=== PATIENT | female | born 1975 | race Caucasian/White ===

== ENCOUNTER → 2019-03-01 15:47 | Outpatient (CLI) | payer BC, SELFPAY ==
--- NOTE | 2019-03-01 16:00 | BD_ITS ---
STUDY: DUAL ENERGY X-RAY ABSORPTIOMETRY / DXA REASON FOR EXAM: Female, 44 years old. Early menopause. Loss of height. TECHNIQUE: Bone Mineral Density (BMD) measurements of lumbar spine and bilateral hips were obtained. COMPARISON: None. FINDINGS: Lumbar Spine (L1-L4): g/cm2 (1.176) / T-score (0.0) / Z-score (0.0) Findings are suggestive of normal bone density with a low fracture risk. Left Femur Total: g/cm2 (1.034) / T-score (0.2) / Z-score (0.5) Left Femoral Neck: g/cm2 (0.972) / T-score (-0.5) / Z-score (0.1) Right Femur Total: g/cm2 (1.052) / T-score (0.4) / Z-score (0.6) Right Femoral Neck: g/cm2 (0.965) / T-score (0.5) / Z-score (0.0) BD/Dexa Bone Density Study IMPRESSION: The patient is considered normal as outlined below according to World Marco Organization (WHO) criteria with a low fracture risk. Reference Information: The T-score is the number of standard deviations above or below the standard which is normal for young adults at their peak bone mineral density. The World Health Organization (WHO) interprets the T-scores as follows: Above -1 Normal bone density Between -1 and -2.5 Osteopenia Equal to / or below -2.5 Osteoporosis As a practical clinical guideline, osteopenia may be graded as follows: Mild -1 through -1.5 Moderate -1.6 through -2.0 Severe -2.1 through -2.4 The Z-score is the number of standard deviations above or below age-matched controls. A Z-score of less than -1.5 would be considered abnormal. References: 1. NIH Osteoporosis and Related Bone Diseases http://www.osteo.org 2. International Society for Clinical Densitometry http://www.iscd.org 3. National Osteoporosis Foundation http://www.nof.org Electronically Signed: Sam Curtis, at 13:37 EDT , Service support ,
== END ==
PROVIDERS: Visit Provider Internal Medicine Hematology & Oncology
DX: Z78.0 Asymptomatic menopausal state (principal)
CPT/HCPCS: 77080

== ENCOUNTER → 2020-10-04 | Outpatient (CLI) | payer BC, SELFPAY ==
[2020-10-04 14:27] VITALS: BMI 38.0
[2020-10-10 13:54] LABS: HPV APTIMA, High Risk Negative (Negative)
== END | disposition home or self-care (01) ==
LOC: LABSPEC 16:24
PROVIDERS: PCP Family Medicine; Visit Provider Nurse Practitioner Women's Health
DX: Z12.4 Encounter for screening for malignant neoplasm of cervix (principal)
CPT/HCPCS: 87624; 88175; G0145

== ENCOUNTER 2022-10-02 07:54 | Outpatient (RCR) | payer OTHER, SELFPAY ==
--- NOTE | 2022-10-03 11:46 | HP.OTEVAL ---
Patient's Visit Information ANDRE PAGAN is a 47 year old F, referred to Occupational Therapy by ADAMA ALEXANDER, with a diagnosis of lymphedema. Date of Evaluation: 10/02/22 Occupational Therapist: Radha Singh, FRANK/Eryn, CHT - Subjective This 47 year old female was seen for OT eval with dx of lymphedema. pt states she was dx in 2013 with breast cancer- had 2 lymph nodes and 36 radiation session. lymphedema pt has done wrapping- has compression sleeve - did do her self manual lymphedema massage-. went on flight to [place] and did not use her compression sleeve-. pt states swelling in left arm and chest wall - a feeling of heaviness/ fullness that is bothersome and uncomfortable when she is wearing her bra. Pt states she would like to know what more she can do to mtg. her lymphedema. - Lymphedema (Circumferential Measure) MCP: right 18.5 left 18 Wrist: right 16.8 left 17cm Lower forearm: right 20 left 19.5 Largest forearm: right 26 left 26.5 Elbow: right 26 left 25cm Largest humerus: right 32.5 left 33.5cm Axcillary: right 37 left 36cm - Goals Demonstrate adequate knowledge of self-massage by 2nd week: Yes Demonstrate adequate knowledge skin care/prec by 2nd week: Yes Demonstrate adequate knowledge therapeutic exercises by d/c: Yes Select approp compression garment w/donning/care/wear by d/c: Yes Voice need to replace compression garment every 4-6mo by dc: Yes Goal:: use of flexitouch for home mtg. - Rehabilitation General Assessment: pt demo with stage 1 lymphedema- symptoms of tightness/ fullness and heaviness of left UE - edema around chest wall when wearing her bra- pt has been performing conservative treatment but has not been successful with results- pt would benefit from home flexitouch compression unit with trunk due to chest wall and abdominal edema. therapist will contact [employer] and get process for pt to have home flexitouch with truck unit to assist pt in life long mtg. of her lymphedema. pt demo understanding and agree to POC. Rehabilitation Potential: Good - Anticipated Interventions Manual Lymph Drainage, Education re Life-long lymphedema Management, Education re Self Massage Techniques, Home Program, Other Other Interventions: home flexitouch unit for self mtg of lymphedema - Visit Plan General Plan: therapist ed. pt on initiation of lymph stimulation exercise- beneficial pool exercises along with use of compression when traveling-. pt will continue using night compression and will get new compression sleeve. Pt receptive to flexitouch home compression device and agree to have therapist send demographic to see if she can get one to assist in her mtg. of lymphedema. TEXT: Thank you for the opportunity to evaluate your patient. For Medicare and Medicare HMO plans, please review the plan of care and approve it. It will need to be FAXED BACK to us at [phone] for Medicare purposes. Please let me know if there are questions or concerns regarding this plan of care. Physician Signature: Date:
--- NOTE | 2022-12-18 14:01 | HP.OT.NRP ---
ANDRE PAGAN was seen in my office for initial evaluation on 10/02/22. The following Plan of Care was established for this patient: Anticipated Interventions: Manual Lymph Drainage, Education re Life-long lymphedema Management, Education re Self Massage Techniques, Home Program, Other Other Interventions: home flexitouch unit for self mtg of lymphedema This patient was last seen in our office 10/02/22. Pertinent comments regarding their Occupational therapy will appear below: pt was seen for OT eval. At this time no further apts. have been scheduled and due to time lapse of greater than 30 days of services pt is d/c. At this point I will be discontinuing this patient from occupational therapy. I would be happy to see this patient again in the future if found appropriate by the physician. Thank you! Radha Singh, OTR/L, CHT
== END 2022-10-02 19:00 | disposition home or self-care (01) ==
LOC: OT 07:54
PROVIDERS: PCP Family Medicine
DX: Z85.3 Personal history of malignant neoplasm of breast (principal)
CPT/HCPCS: 97166; 97530

== ENCOUNTER 2023-12-22 08:13 | Day surgery (SDC) | payer OTHER, SELFPAY ==
--- OUTSIDE RECORDS SUMMARY | 2023-12-22 08:33 | XMS RPT_ITS | CCD ---
Author Name Unknown Address [id number] [place] [address] Organization [facility] Care Team Providers Care Integration Engineer Name Role Phone Lawanda Schroeder Unavailable Unavailable Lawanda Schroeder Unavailable Unavailable ALEXANDRE, LAWANDA TODD Admitting Unavailab le STENGIDEON, LAWANDA TODD Primary Care Unavailab le Lawanda Schroeder Unavailable Unavailable Unavailable Lawanda Schroeder MD Primary Care Provider Cleve LOWERY, Kellie G Unavailable Gabriele CLIFTON, Jacqueline Unavailable Unavailable Shaffer OFFICE RENTAL CLERK-ORTHOTIC PRACTITIONER, Nedra L Unavailable [phone] Funmi ROSSI, PhD, Chadwick Hawkins Unavailable [phone] Phil CLIFTON, Roxie Unavailable Unavailable Dann RN, Paramjit Unavailable Unavailable Charlie RN, Amrita Unavailable Unavailable Stencel, Dr. Lawanda Todd Referring Unava ilable Stengideon, Dr. Lawanda Todd Attending Mauro ilable Stencel, Dr. Lawanda Todd Primary Care Unava ilable Stencel, Dr. Lawanda Todd Primary Care Unava ilable Stencel, Dr. Lawanda Todd Referring Unava ilable Stencel, Dr. Lawanda Todd Attending Unava ilable StenLawanda padilla MD Primary Care Provider Lawanda Schroeder MD Unavailable Lawanda Schroeder MD Primary Care Provider Cleve LOWERY, Kellie G Unavailable Gabriele CLIFTON, Jacqueline Unavailable Unavailable Shaffer APRN-ORTHOTIC PRACTITIONER, Nedra L Unavailable [phone] Funmi ROSSI, PhD, Chadwick Hawkins Unavailable Phil RN, Roxie Unavailable Unavailable Dann RN, Paramjit Unavailable Unavailable Charlie RN, Amrita Unavailable Unavailable ELVI DE LEÓN Referring Unavailable STENCEL, LAWANDA Primary Care Unavailable JOSE REIS Attending Unavailable STENCEL, LAWANDA Primary Care Unavailable ELVI DE LEÓN Referring Unavailable STENCEL, LAWANDA Primary Care Unavailable STENCEL, LAWANDA Attending Unavailable MAMMOGRAPHY-ZENAIDA, SELF-REQUESTED Referring Unavailable STENCEL, LAWANDA Primary Care Unavailable STENCEL, LAWANDA D Primary Care Unavailable STENCEL, LAWANDA D Attending Unavailable STENCEL, LAWANDA D Referring Unavailable STENCEL, LAWANDA D Primary Care Unavailable STENCEL, LAWANDA D Attending Unavailable STENCEL, LAWANDA D Primary Care Unavailable Allergies Allergy Classification Reported Allergen(s) Allergy Type Date of Onset Reaction(s) Facility letrozole (2 sources) letrozole; Translations: [letrozole] Drug Allergy Rash [facility] Work Phone: Opioid Agonists (2 sources) Meperidine; Translations: [Demerol TABS] Drug Allergy Vomiting [facility] Work Phone: Tamoxifen (2 sources) Tamoxifen; Translations: [tamoxifen] Drug Allergy [facility] Work Phone: (16 sources) letrozole; Translations: [letrozole] Drug Allergy 7 Rash [facility] (7 sources) Meperidine; Translations: [Demerol TABS] Drug Allergy 3 Vomiting, Other [facility] Work Phone: (9 sources) Tamoxifen; Translations: [tamoxifen] Drug Allergy 3 Unknown [facility] Work Phone: (7 sources) Meperidine Drug Allergy 4 Nausea and Vomiting [facility] (7 sources) Naproxen Drug Allergy 6 Nausea and Vomiting [facility] Work Phone: (2 sources) Meperidine; Translations: [MEPERIDINE] Drug Allergy 3 [facility] Medications Current Medications Medication Drug Class(es) Dates Sig (Normalized) Sig (Original) aspirin 81 mg delayed release oral tablet (16 sources) Platelet Aggregation Inhibitor, Nonsteroidal Anti-inflammatory Drug Start: 01-26-2020 take 1 tablet by mouth once daily aspirin 81 mg EC tablet Take 1 tablet (81 mg) by mouth once daily. 0 01/26/2020 Active Completed/Discontinued Medications Medication Drug Class(es) Dates Sig (Normalized) Sig (Original) anastrozole 1 mg oral tablet (1 source) Aromatase Inhibitor Start: 01-26-2020 take 1 tablet by mouth once daily Anastrozole 1 MG Oral Tablet TAKE 1 TABLET DAILY. Refills: 0 DO Start : 26-Jan-2020 Active fluticasone propionate 0.05 mg/actuat metered dose nasal spray (4 sources) Corticosteroid Start: 07-26-2020 take 2 spray(s) nasal route once daily Fluticasone Propionate 50 MCG/ACT Nasal Suspension USE 2 SPRAYS IN EACH NOSTRIL ONCE DAILY Quantity: 1 Refills: 11 Ordered: 26-Jul-2020 Lawanda Schroeder MD Start : 26-Jul-2020 Active hydrocortisone valerate 2 mg/ml topical cream (1 source) Corticosteroid Start: 01-26-2020 Hydrocortisone Valerate 0.2 % External Cream APPLY SPARINGLY ONCE OR TWICE DAILY NEEDED. Quantity: 1 Refills: 11 Laawnda Schroeder Start : 26-Jan-2020 Active 15 GM Tube Problems Active Problems Problem Classification Problem Date Documented Da te Episodic/Chronic Allergic reactions (13 sources) Eczema; Translations: [Contact dermatitis and other eczema, unspecified cause] Onset: 05-04-2023 05-05-2023 Episodic Cancer of breast (20 sources) Malignant tumor of breast ; Translations: [Malignant neoplasm of breast (female), unspecified] Onset: 09-13-2014 Resolved: 05-12-2016 01-26-2018 Chronic Cancer of breast (7 sources) History of malignant neoplasm of breast; Translations: [Personal history of malignant neoplasm of breast] Onset: 11-03-2023 Episodic Disorders of lipid metabolism (15 sources) Hyperlipidemia; Translations: [Other and unspecified hyperlipidemia] Onset: 05-04-2023 05-05-2023 Chronic Essential hypertension (13 sources) Hypertensive disorder; Translations: [Unspecified essential hypertension] Onset: 05-04-2023 05-05-2023 Chronic Immunizations and screening for infectious disease (9 sources) Patient encounter status; Translations: [Other specified vaccination] 04-15-2023 Episodic Nonmalignant breast conditions (3 sources) Lump in left breast; Translations: [Unspecified lump in the left breast, unspecified quadrant] Episodic Other diseases of veins and lymphatics (7 sources) Lymphedema of upper limb; Translations: [Lymphedema, not elsewhere classified] Onset: 01-17-2016 01-17-2016 Chronic Other diseases of veins and lymphatics (2 sources) Lymphedema, not elsewhere classified; Translations: [Lymphedema, not elsewhere classified] Onset: 01-17-2016 Chronic Other liver diseases (7 sources) Steatosis of liver; Translations: [Fatty (change of) liver, not elsewhere classified] Onset: 10-14-2015 10-14-2015 Chronic Other nutritional; endocrine; and metabolic disorders (10 sources) Obesity; Translations: [Obesity, unspecified] Onset: 05-04-2023 05-04-2023 Chronic Other nutritional; endocrine; and metabolic disorders (7 sources) Obese class I; Translations: [Obesity, unspecified] Onset: 04-20-2017 04-20-2017 Chronic Residual codes; unclassified (14 sources) Past history of procedure; Translations: [Other specified personal history presenting hazards to health] Episodic Past or Other Problems Problem Classification Problem Date Documented Da te Episodic/Chronic Calculus of urinary tract (9 sources) Uric acid renal calculus; Translations: [Uric acid nephrolithiasis] Onset: 05-04-2023 05-04-2023 Episodic Hepatitis (16 sources) Nonalcoholic steatohepatitis; Translations: [Other chronic nonalcoholic liver disease] Onset: 05-24-2019 Resolved: 12-29-2019 12-29-2019 Chronic Mood disorders (7 sources) Mood disorders Onset: 08-01-2022 Resolved: 08-01-2022 08-01-2022 Other aftercare (7 sources) Prevention status; Translations: [residential (current) use of selective estrogen receptor modulators (SERMs)] Onset: 01-20-2015 Resolved: 01-29-2021 01-29-2021 Episodic Other liver diseases (7 sources) Enzyme level - finding; Translations: [Elevated transaminase level] Onset: 10-02-2015 10-02-2015 Episodic Other screening for suspected conditions (not mental disorders or infectious disease) (2 sources) Encounter for screening mammogram for malignant neoplasm of breast; Translations: [Encounter for screening mammogram for malignant neoplasm of breast] Onset: 08-07-2023 Episodic Viral infection (3 sources) Disease caused by 2019-nCoV; Translations: [Other specified viral infection] Onset: 05-04-2023 Resolved: 05-04-2023 05-04-2023 Episodic NEGATED: Highlighted row has not occurred!Residual codes; unclassified (4 sources) Disease Episodic Results Test Name Value Interpretation Reference Range Facil ity Vital Signs Date Time Vital Sign Value Performing Clinician Facility 11-12-2023 08:04-0500 Body height 157.5 cm Lawanda Schroeder MD Work Phone: [facility] 11-12-2023 08:04-0500 Body mass index (BMI) [Ratio] 33.75 kg/m2 Lawanda Schroeder MD Work Phone: [facility] 11-12-2023 08:04-0500 Body weight 83.69 kg Lawanda Schroeder MD Work Phone: [facility] 11-12-2023 08:04-0500 Diastolic blood pressure 80 mm[Hg] Lawanda Schroeder MD Work Phone: [facility] 11-12-2023 08:04-0500 Heart rate 80 /min Lawanda Schroeder MD Work Phone: [facility] 11-12-2023 08:04-0500 SaO2% (BldA) [Mass fraction] 99 % Lawanda Schroeder MD Work Phone: [facility] 11-12-2023 08:04-0500 Systolic blood pressure 122 mm[Hg] Lawanda Schroeder MD Work Phone: [facility] 05-05-2023 08:06-0400 Body height 157.5 cm Lawanda Schroeder MD Work Phone: [facility] 05-05-2023 08:06-0400 Body mass index (BMI) [Ratio] 39.36 kg/m2 Lawanda Schroeder MD Work Phone: [facility] 05-05-2023 08:06-0400 Body weight 97.61 kg Lawanda Schroeder MD Work Phone: [facility] 05-05-2023 08:06-0400 Diastolic blood pressure 78 mm[Hg] Lawanda Schroeder MD Work Phone: [facility] 05-05-2023 08:06-0400 Heart rate 92 /min Lawanda Schroeder MD Work Phone: [facility] 05-05-2023 08:06-0400 SaO2% (BldA) [Mass fraction] 98 % Lawanda Schroeder MD Work Phone: [facility] 05-05-2023 08:06-0400 Systolic blood pressure 126 mm[Hg] Lawanda Schroeder MD Work Phone: [facility] 10-31-2022 08:19-0500 Body height 157.48 cm Lawanda Schroeder Work Phone: [facility] Work Phone: 10-31-2022 08:19-0500 Body mass index (BMI) [Ratio] 37.4 kg/m2 Lawanda Schroeder Work Phone: [facility] Work Phone: 10-31-2022 08:19-0500 Body surface area Derived from formula 1.93 m2 aLwanda Schroeder Work Phone: [facility] Work Phone: 10-31-2022 08:19-0500 Body weight 92.76 kg Lawanda Schroeder Work Phone: [facility] Work Phone: 10-31-2022 08:19-0500 Diastolic blood pressure 84 mm[Hg] Lawanda Schroeder Work Phone: [facility] Work Phone: 10-31-2022 08:19-0500 Heart rate 97 /min Lawanda Schroeder Work Phone: [facility] Work Phone: 10-31-2022 08:19-0500 SaO2% (BldA) [Mass fraction] 84 % Lawanda Schroeder Work Phone: [facility] Work Phone: 10-31-2022 08:19-0500 Systolic blood pressure 126 mm[Hg] Lawanda Schroeder Work Phone: [facility] Work Phone: 08-01-2022 08:12-0400 Body height 154.9 cm Elvi Talley OFFICE RENTAL CLERK-ORTHOTIC PRACTITIONER Work Phone: [facility] 08-01-2022 08:12-0400 Body mass index (BMI) [Ratio] 36.56 kg/m2 Elvi Talley OFFICE RENTAL CLERK-ORTHOTIC PRACTITIONER Work Phone: [facility] 08-01-2022 08:12-0400 Body temperature 98.2 [degF] Elvi Talley OFFICE RENTAL CLERK-ORTHOTIC PRACTITIONER Work Phone: [facility] 08-01-2022 08:12-0400 Body weight 87.77 kg Elvi Talley OFFICE RENTAL CLERK-ORTHOTIC PRACTITIONER Work Phone: [facility] 08-01-2022 08:12-0400 Diastolic blood pressure 77 mm[Hg] Elvi Talley OFFICE RENTAL CLERK-ORTHOTIC PRACTITIONER Work Phone: [facility] 08-01-2022 08:12-0400 Heart rate 61 /min Elvi Talley OFFICE RENTAL CLERK-ORTHOTIC PRACTITIONER Work Phone: [facility] 08-01-2022 08:12-0400 Systolic blood pressure 129 mm[Hg] Elvi Talley OFFICE RENTAL CLERK-ORTHOTIC PRACTITIONER Work Phone: [facility] 05-08-2021 08:12-0400 Body height 157.48 cm Lawanda Schroeder Work Phone: [facility] Work Phone: 05-08-2021 08:12-0400 Body mass index (BMI) [Ratio] 36.03 kg/m2 Lawanda Schroeder Work Phone: [facility] Work Phone: 05-08-2021 08:12-0400 Body surface area Derived from formula 1.9 m2 Lawanda Schroeder Work Phone: [facility] Work Phone: 05-08-2021 08:12-0400 Body temperature 96.9 [degF] Lawanda Schroeder Work Phone: [facility] Work Phone: 05-08-2021 08:12-0400 Body weight 89.36 kg Lawanda Schroeder Work Phone: [facility] Work Phone: 05-08-2021 08:12-0400 Diastolic blood pressure 70 mm[Hg] Lawanda Schroeder Work Phone: [facility] Work Phone: 05-08-2021 08:12-0400 Heart rate 78 /min Lawanda Schroeder Work Phone: [facility] Work Phone: 05-08-2021 08:12-0400 SaO2% (BldA) [Mass fraction] 98 % Lawanda Schroeder Work Phone: [facility] Work Phone: 05-08-2021 08:12-0400 Systolic blood pressure 110 mm[Hg] Lawanda Schroeder Work Phone: [facility] Work Phone: 07-26-2020 10:17-0400 BMI (Body Mass Index) 35.68 kg/m2 Lawanda Schroeder [facility] Work Phone: 07-26-2020 10:17-0400 Body Temperature 97.7 [degF] Lawanda Alexandre [facility] Work Phone: 07-26-2020 [id number] Body weight 88.5 kg Lawanda Albagideon [facility] Work Phone: 07-26-2020 10:17-0400 BP Diastolic 78 mm[Hg] Lawanda Alexandre [facility] Work Phone: Encounters Encounter Date Encounter Type Care Provider Facility Start: 11-16-2023 End: 11-16-2023 Clinical Support Encounter [facility] Procedures Date Procedure Procedure Detail Performing Clinician Start: 11-12-2023 FOLLOW UP IN FAMILY MEDICINE LAWANDA SCHROEDER Start: 11-05-2023 CBC panel - Blood by Automated count LAWANDA SCHROEDER Start: 11-05-2023 Comprehensive metabo lic 2000 panel - Serum or Plasma LAWANDA SCHROEDER Start: 11-05-2023 Lipid panel LAWANDA JARVIS Start: 11-05-2023 Lipid 1996 panel - S vickey or Plasma Lawanda Schroeder MD Work Phone: Start: 10-21-2022 Lipid 1996 panel - S vickey or Plasma Lawanda Schroeder MD Work Phone: Start: 08-01-2022 Us breast uni real t [place] with image limited Elvi Talley APRN-ORTHOTIC PRACTITIONER Work Phone: Start: 08-01-2022 Diagnostic mammograp hy computer-aided detcj bi Elvi Talley APRN-ORTHOTIC PRACTITIONER Work Phone: Appendectomy Lawanda Schroeder Plan of Treatment Date Care Activity Detail Author Start: 11-05-2028 Lipid panel Lipid Panel [facility] Start: 10-21-2027 Lipid panel Lipid Panel [facility] Start: 08-07-2024 Screening for malignant neoplasm of breast MAMMOGRAM SCREENING DISCUSSION [facility] Start: 02-24-2024 Zoster Vaccines (1 of 2) Zoster Vaccines (1 of 2) [facility] Start: 08-01-2023 Screening for malignant neoplasm of breast MAMMOGRAM SCREENING DISCUSSION [facility] Start: 08-01-2023 Screening mammography MAMMOGRAM SCREENING DISCUSSION [facility] Start: 07-31-2023 COVID-19 VACCINE ( season) COVID-19 VACCINE ( season) [facility] Start: 07-31-2023 Influenza vaccination INFLUENZA VACCINE (#1) [facility] Start: 05-05-2023 End: 05-05-2024 CBC panel - Blood by Automated count CBC Lab Routine Mixed hyperlipidemia Expected: 05/05/2023 (Approximate), Expires: 05/05/2024 [facility] Service Area Work Phone: Immunizations Immunization Date Immunization Notes Care Provider Fa cili 09-01-2022 influenza, injectabl e, quadrivalent, contains preservative Lawanda Schroeder MD Work Phone: [facility] Work Phone: 09-01-2022 influenza, injectabl e, quadrivalent, preservative free Lawanda Schroeder Work Phone: [facility] Work Phone: Payers Date Payer Category Payer Unknown [id number] 2020 Unknown 1975 Unknown [id number] 1974 Unknown [id number] 1974 Unknown [id number] 2. [id number] 1974 Unknown [id number] 1974 Unknown [id number] 2. [id number] 1974 Unknown [id number] 2. [id number] 1974 Unknown [id number] 2. [id number] 1974 Unknown [id number] [id number] 1974 Unknown [id number] [id number] 1974 Unknown [id number] Social History Date Type Detail Facility Assertion [facility] Work [facility]: Start: 08-01-2022 End: 08-07-2023 Current non-drinker of alcohol Current non-drinker of alcohol [facility] Work Phone: Start: 09-13-2014 End: 05-05-2023 Tobacco smoking status NHIS Never smoked tobacco [facility] Start: 09-13-2014 End: 05-05-2023 Tobacco use and exposure Smokeless tobacco non-user [facility] Start: 08-01-2022 End: 08-07-2023 Alcohol intake Current non-drinker of alcohol (finding) [facility] Start: 08-01-2022 History SDOH Financial 5 [facility] Start: 08-01-2022 History SDOH Food Worry 1 [facility] Start: 08-01-2022 History SDOH Transpo rt Med 2 [facility] Start: 1975 Sex Assigned At Not on file O [facility] Start: 05-05-2023 End: 11-12-2023 Alcohol intake Ex-drinker (finding) [facility] Work Phone: Start: 08-01-2022 End: 08-07-2023 Gender identity Not on file [facility] Work Phone: Start: 04-25-2023 End: 11-12-2023 Exposure to SARS-CoV-2 (event) Not sure [facility] How hard is it for y ou to pay for the very basics like food, housing, medical care, and heating Not hard at all [facility] (I/We) worried wheconnor er (my/our) food would run out before (I/we) got money to buy more. Never true [facility] Gender identity Identifies as fe male gender (finding) [facility] Goals Date Patient Goal Desired Activity /State Personal health goal Functional Status Date Assessment Result Facility NEGATED: Highlighted row Functional performance Functional status health issues are not documented Disease [facility] Work Phone: Mental Status Date Assessment Result Facility NEGATED: Highlighted row Cognitive function [Interpretation] Cognitive status health issues are not documented [facility] Work Phone: Clinical Notes 08-01-2022 to 11-16-2023 Sarita Corcoran - 11/16/2023 10:00 AM Angelina Schroeder MD - 11/12/2023 8:00 AM Julián Lopez - 11/03/2023 1:00 PM Jessenia Ferrer - 08/07/2023 3:20 PM EDT Note Date & Type Note Facility 11-16-2023 History of Present illness Narrative Catherine Arnold starburst garment(s). Sleeve(100) Glove() Gauntlet(50) Rx good Inv # documented in this encounter [facility] 11-12-2023 History of Present illness Narrative Subjective Patient ID: Terri Robles is a 48 y.o. female who presents for Follow-up (6 mo rev labs). HPI Since the last office visit there have been no interval operations, hospitalizations, important illnesses or injuries. HTN-Takes and tolerates meds without side effects. No alcohol. no tobacco. some exercise. low salt. Reviewed recommendation for 150 minutes of exercise per week including 2 days of weight training if over age 50 F/Up osu for br ca x9y Hyperlipidemia- is on a statin and a prudent diet. Is down 30#-ortivia. Review of Systems General-no fatigue weight to within 10 pounds ENT no problems with vision swallowing Cardiac no chest pains palpitations change in exercise tolerance or capacity Pulmonary no cough shortness of breath GI no heartburn or abdominal pain Musculoskeletal no joint pains Objective BP 122/80 Pulse 80 Ht 1.575 m (5' 2 ) Wt 83.7 kg (184 lb 8 oz) SpO2 99% BMI 33.75 kg/m Physical Exam General: Alert, No acute distress. Appears stated age Eye: Pupils are equal, round and reactive to light, Extraocular movements are intact, Normal conjunctiva. Neck: Supple, Non-tender, No carotid bruit, No jugular venous distention, No lymphadenopathy, No thyromegaly. Respiratory: Lungs are clear to auscultation, Respirations are non-labored, Breath sounds are equal. Cardiovascular: Normal rate, Regular rhythm, No murmur. Gastrointestinal: Soft, Non-tender, No organomegaly. No solid or pulsatile mass Integumentary: Warm, Dry. No concerning lesions on exposed areas Neurologic: Alert, Oriented. Gross and fine motor intact, CN 2-12 intact Psychiatric: Cooperative, Appropriate mood & affect. Assessment/Plan Problem List Items Addressed This Visit ICD-10-CM Breast cancer (CMS/HCC) C50.919 Eczema L30.9 Hyperlipidemia E78.5 Hypertension I10 documented in this encounter [facility] Work Phone: 11-03-2023 History of Present illness Narrative NOTE: VERIFY NAME, , ADDRESS FOR CLIENT(UPDATE CATAPULT) Bra Prosthesis Note Terri Robles is being seen today at [facility] by Kimberly Lopez for a Breast Issue. Her surgery was on 2013. Mastectomy: R__ L__ Bilateral __ Lumpectomy: R__ L_x_ Bilateral__ Reconstruction: Yes__ No _x_ Reconstruction removed Yes__ No__ Orders Orders: Orders reviewed _y___ Dx code ____Z85.3 HAYS Measurements Bra Band: 38.5 inches Fullest part of Bust: NA inches Final band size:42 Final cup size:B Prosthesis/Form: Size: LEON 220 05 Additional Visit information Client Visit: pre/post op___ routine/annual__X_ refit___ reorder/no fitting___. Goals that were discussed with patient: COMFORT, FIT Reason for replacement of bras: HAS LOST WEIGHT, BRAS TOO BIG IN THE CUP Reason for replacement of prosthesis: DUE FOR REPLACEMENT Concerns/comments about fitting: TERRI HAS LOST WEIGHT, HER BRAS ARE TOO BIG IN THE CUP. SHE LIKES THE ABC 103, NEEDS A SMALLER CUP. SHE TRIED ON BOTH THE SIZE 5 AND 6 OR THE LEON 220, SHE HAS WORN A 5 AND LIKES THE FIT BETTER OF THE 5. ORDERED THE ABC 103 42B [place] [employer] FOR DROP SHIP, CONFIR.# [id number]. Did you instruct client on don/doffing procedures: Y Did you instruct client of care for pros/bras: Y Did you instruct client of warranty/storage of pros/bras: Y Purchased: LEON 220 5 ABC 103 42B BK ABC 103 42B BG Product ordered: ABC 103 42B [place] [employer]-DROP SHIP #[id number] DID YOU RELEASE CARE INSTRUCTIONS Y documented in this encounter [facility] 08-07-2023 History of Present illness Narrative Patient offered a medical vinyl top installer for sensitive exam. Pt declined documented in this encounter [facility] 05-05-2023 History of Present illness Narrative Subjective Patient ID: Terri Robles is a 48 y.o. female who presents for Follow-up (6 mo). HPI Since the last office visit there have been no interval operations, hospitalizations, important illnesses or injuries. HTN-Takes and tolerates meds without side effects. No alcohol. no tobacco. no exercise. low salt. Reviewed recommendation for 150 minutes of exercise per week including 2 days of weight training if over age 50 Hyperlipidemia- is on a statin and a prudent diet. BrCa-stable wotyh annl mmg. Some uri/allergy sx Review of Systems General-no fatigue weight to within 10 pounds ENT no problems with vision swallowing Cardiac no chest pains palpitations change in exercise tolerance or capacity Pulmonary no cough shortness of breath GI no heartburn or abdominal pain Musculoskeletal no joint pains Objective BP 126/78 Pulse 92 Ht 1.575 m (5' 2 ) Wt 97.6 kg (215 lb 3.2 oz) SpO2 98% BMI 39.36 kg/m Physical Exam General: Alert, No acute distress. Appears stated age Eye: Pupils are equal, round and reactive to light, Extraocular movements are intact, Normal conjunctiva. Neck: Supple, Non-tender, No carotid bruit, No jugular venous distention, No lymphadenopathy, No thyromegaly. Respiratory: Lungs are clear to auscultation, Respirations are non-labored, Breath sounds are equal. Cardiovascular: Normal rate, Regular rhythm, No murmur. Gastrointestinal: Soft, Non-tender, No organomegaly. No solid or pulsatile mass Integumentary: Warm, Dry. No concerning lesions on exposed areas Neurologic: Alert, Oriented. Gross and fine motor intact, CN 2-12 intact Psychiatric: Cooperative, Appropriate mood & affect. Assessment/Plan Problem List Items Addressed This Visit Circulatory Hypertension Relevant Orders Follow Up In Primary Care Infectious/Inflammatory Eczema - Primary Relevant Medications predniSONE (Deltasone) 10 mg tablet Other Relevant Orders Follow Up In Primary Care Other Breast cancer (CMS/HCC) Relevant Orders Follow Up In Primary Care Hyperlipidemia Relevant Orders CBC Comprehensive Metabolic Panel Lipid Panel Follow Up In Primary Care documented in this encounter [facility] Work Phone: 08-01-2022 History of Present illness Narrative BILLED MED MUT & DISPENSED- ABC 103 42C PK & BG documented [facility] 08-01-2022 History of Present illness Narrative Patient was offered a medical vinyl top installer and she declined documented in this encounter [facility] 08-01-2022 History of Present illness Narrative HISTORY OF PRESENT ILLNESS Follow-up (Patient reports two lumps in the underside of her left breast within the last few months.) The patient has a personal history of a LEFT breast cancer process (pT1a, 3 mm, pN0 [0/2 left axillary lymph nodes], 80% ER positive, 80% LA positive, HER-2/marcelina negative, 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 The patient underwent left breast needle localized wide surgical excision procedure and left breast sentinel lymph node biopsy procedure at [facility] on 10/09/2014. The patient did not require postoperative adjuvant systemic chemotherapy. The patient received postoperative adjuvant whole breast radiation therapy to her left breast by Dr. Roxie Cervantes of [facility] breast radiation oncology, which he completed in December 2014. The patient was placed on postoperative adjuvant antiestrogen therapy with tamoxifen in January 2015. The patient had to temporarily discontinue her postoperative adjuvant antiestrogen therapy with tamoxifen secondary to elevation in her liver function tests, and for which the patient was later changed over to postoperative adjuvant antiestrogen therapy with aromatase inhibitor/Arimidex. She discontinued all postoperative adjuvant antiestrogen therapy with aromatase inhibitor/Arimidex in January 2020. The patient was last seen by Dr. Reis on 09/03/2021 at the time of her annual mammogram, BIRADS 2. He discussed modifying her follow up to being seen in clinic on a PRN basis after her August 2022 appointment. Terri returns today for evaluation of a new left breast lump. She feels the area more when laying down. She first noticed it a couple weeks ago. Denies open lesions or drainage. Denies trauma to the breast. She reports worsening lymphedema since a vacation to [place] this summer. She did not wear a compression sleeve on the flight there. She has had a few lymphatic massages since that time. REVIEW OF SYSTEMS Negative for additional constitutional, HEENT, cardiovascular, respiratory, gastrointestinal, genitourinary, musculoskeletal, integumentary, neurological, psychiatric, endocrine, or hematologic/lymphatic complaints aside from that which was mentioned in the history of present illness. PHYSICAL EXAMINATION Vital Signs: BP 129/77 (BP Location: Right arm, BP Position: Sitting) Pulse 61 Temp 98.2 F (36.8 C) (Oral) Ht 1.549 m (5' 1 ) Wt 87.8 kg (193 lb 8 oz) BMI 36.56 kg/m Smoking Status Never Smoker The patient's left breast surgical excision site in the lateral aspect of her left breast looks well. Her area of concern is at 9:00 10cmfn. This area feels like a rib. Her other area is located in at 7:00 approximately 4.5cmfn in her inframammary fold. No suspicious palpable or visual findings. Radiation changes noted. Areas marked for further evaluation with ultrasound. The patient has no new discrete, concerning, palpable right breast masses. The patient has very fatty axillas bilaterally. The patient has no supraclavicular, or axillary adenopathy bilaterally. BREAST IMAGING IMPRESSION: 1. No suspicious mammographic or sonographic finding at the marked areas of palpable concern in the left breast at 7:00 zone 3/inframammary fold and 9:00 zone 3. 2. No mammographic evidence of malignancy in either breast. Imaging findings were discussed with the patient by Dr. Aguayo at 10:10 AM on 08/01/2022. BI-RADS: 2: Benign Recommendation: Clinical correlation/management. Recommendation Laterality: Left I personally viewed and interpreted these images and I have reviewed and approved this report. [employer] Terri returns today for evaluation of a new left breast lump. The patient's area of concern is at 9:00 and 7:00. Bilateral mammogram updated and left breast ultrasound obtained for further evaluation. This showed no suspicious findings. We discussed a referral to physical therapy for lymphedema evaluation and treatment. She would like to continue with lymph massage locally. She will contact clinic if she would like a referral faxed locally. We discussed returning to clinic on a PRN basis as discussed by Dr. Reis at her appointment last year. We will cancel her appointment on 09/09/2022 as her imaging was updated today. I encouraged her to continue her breast imaging through [facility] and provided her with our scheduling information. I emphasized the importance of regular self breast exams.She will return to the [facility] Surgical Oncology clinic on a prn basis. She will notify us if she has any breast problems in the future. Terri Robles is agreeable to this plan and all of her questions were answered today. She was encouraged to call with any questions or concerns. Patient offered a medical vinyl top installer for sensitive exam. Patient declined vinyl top installer. [facility] Diagnosis Malignant neoplasm of upper-outer quadrant of left female breast, unspecified estrogen receptor status- Primary [facility] Diagnosis Personal history of malignant neoplasm of breast Mass of left breast, unspecified quadrant [facility] Diagnosis Personal history of malignant neoplasm of breast Mass of left breast, unspecified quadrant [facility] Diagnosis Eczema, unspecified type- Primary Malignant neoplasm of upper-outer quadrant of left breast in female, estrogen receptor positive (CMS/HCC) Primary hypertension Unspecified essential hypertension Mixed hyperlipidemia documented in this encounter [facility] Work Phone: Evaluation note* Diagnosis Visit for screening mammogram Other screening mammogram [facility] Diagnosis Personal history of malignant neoplasm of breast- Primary [facility] Diagnosis Eczema, unspecified type Malignant neoplasm of upper-outer quadrant of left breast in female, estrogen receptor positive (CMS/HCC) Primary hypertension Unspecified essential hypertension Mixed hyperlipidemia documented in this encounter [facility] Work Phone: History of Present illness Narrative* Since the last office visit there have been no interval operations, hospitalizations, important illnesses or injuries. * annual at [facility] for br cancer in aug * khan- lost weight, lfts are normal, saw hepatology at [facility]. * HTN-Takes and tolerates meds without side effects. No alcohol. no tobacco. no exercise. low salt. Reviewed recommendation for 150 minutes of exercise per week including 2 days of weight training if over age 50 * Hyperlipidemia- is on statin and a liberal diet. starting intermittent fasting in january# * derm on eyelids woth mometasone [facility] Work Phone: History of Present illness Narrative* Since the last office visit there have been no interval operations, hospitalizations, important illnesses or injuries. * annual at [facility] for br cancer in aug * khan- lost weight, lfts are normal, saw hepatology at [facility]. * HTN-Takes and tolerates meds without side effects. No alcohol. no tobacco. no exercise. low salt. Reviewed recommendation for 150 minutes of exercise per week including 2 days of weight training if over age 50 * Hyperlipidemia- is on statin and a liberal diet. starting intermittent fasting in january# * derm on eyelids woth mometasone [facility] Work Phone: History of Present illness Narrative* Since the last office visit there have been no interval operations, hospitalizations, important illnesses or injuries. * Hyperlipidemia- is on statin and a prudent diet. * HTN-Takes and tolerates meds without side effects. No alcohol. no tobacco. no exercise. low salt. Reviewed recommendation for 150 minutes of exercise per week including 2 days of weight training if over age 50 * BrCa 8 yrs MITESH, to get pymphatic pump[, annually to [place], in jul mmg * will monitor calcium [facility] Work Phone: reason for referral (narrative)* Consultation (Routine) - Authorized Specialty Diagnoses / Procedures Referred By Ricardo laex Referred To Contact Primary Care Diagnoses Eczema, unspecified type Malignant neoplasm of upper-outer quadrant of left breast in female, estrogen receptor positive (CMS/HCC) Primary hypertension Mixed hyperlipidemia Procedures Follow Up In Primary Care Lawanda Schroeder MD [address] [place] [address] Referral ID Status Reason Start Date Expiration Date V isits Requested Visits Authorized [id number] Authorized 05/05/2023 11/01/2023 1 1 [facility] Work Phone: Reason for referral (narrative)* Consultation (Routine) - Authorized Specialty Diagnoses / Procedures Referred By Ricardo alex Referred To Contact Primary Care Diagnoses Malignant neoplasm of upper-outer quadrant of left breast in female, estrogen receptor positive (CMS/HCC) Primary hypertension Mixed hyperlipidemia Procedures Follow Up In Primary Care - Established Lawanda Schroeder MD [address] [place] [address] Referral ID Status Reason Start Date Expiration Date V isits Requested Visits Authorized [id number] Authorized 11/12/2023 11/11/2024 1 1 [facility] Work Phone: Summary Purpose Family History Grandparent Name Dates Details Family history of cerebrovas cular accident (CVA)(V17.1, Z82.3) Status:Active Mother Name Dates Details Family history of hyperlipid emia(V18.19, Z83.438) Status:Active Family history of hypertensi on(V17.49, Z82.49) Status:Active Father Name Dates Details Family history of hyperlipid emia(V18.19, Z83.438) Status:Active Grandparent Name Dates Details Family history of cerebrovas cular accident (CVA)(V17.1, Z82.3) Status:Active Mother Name Dates Details Family history of hyperlipid emia(V18.19, Z83.438) Status:Active Family history of hypertensi on(V17.49, Z82.49) Status:Active Father Name Dates Details Family history of hyperlipid emia(V18.19, Z83.438) Status:Active Grandparent Name Dates Details Family history of cerebrovas cular accident (CVA)(V17.1, Z82.3) Status:Active Mother Name Dates Details Family history of hyperlipid emia(V18.19, Z83.438) Status:Active Family history of hypertensi on(V17.49, Z82.49) Status:Active Father Name Dates Details Family history of hyperlipid emia(V18.19, Z83.438) Status:Active Unknown Family Member Name Dates Details Family history of cerebrovas cular accident (CVA): Grandparent(V17.1, Z82.3) Status:Active Family history of hyperlipid emia: Mother, Father(V18.19, Z83.438) Status:Active Family history of hypertensi on: Mother(V17.49, Z82.49) Status:Active Unknown Family Member Name Dates Details Family history of cerebrovas cular accident (CVA): Grandparent(V17.1, Z82.3) Status:Active Family history of hyperlipid emia: Mother, Father(V18.19, Z83.438) Status:Active Family history of hypertensi on: Mother(V17.49, Z82.49) Status:Active Unknown Family Member Name Dates Details Family history of cerebrovas cular accident (CVA): Grandparent(V17.1, Z82.3) Status:Active Family history of hyperlipid emia: Mother, Father(V18.19, Z83.438) Status:Active Family history of hypertensi on: Mother(V17.49, Z82.49) Status:Active Unknown Family Member Name Dates Details Family history of cerebrovas cular accident (CVA): Grandparent(V17.1, Z82.3) Status:Active Family history of hyperlipid emia: Mother, Father(V18.19, Z83.438) Status:Active Family history of hypertensi on: Mother(V17.49, Z82.49) Status:Active Advance Directives No Advanced Directives Records FoundNo Advanced Directives Records FoundNo Advanced Directives Records FoundNo Advanced Directives Records FoundNo Advanced Directives Records FoundNo Advanced Directives Records FoundNo Advanced Directives Records FoundNo Advanced Directives Records FoundNo Advanced Directives Records Found Chief Complaint 3 MO FU REV LABS3 MO FU REV LABS6 MO FU. REV LABS Reason for Referral Specialty Diagnoses / Procedures Referred By Ricardo t Referred To Contact Diagnoses Personal history of malignant neoplasm of breast Mass of left breast, unspecified quadrant Procedures US BREAST LIMITED UNILATERAL LEFT Elvi Talley, OFFICE RENTAL CLERK-ORTHOTIC PRACTITIONER [address] [place] [address] Referral ID Status Reason Start Date Expiration Date V isits Requested Visits Authorized [id number] New Request 08/01/2022 08/26/2023 1 1 Specialty Diagnoses / Procedures Referred By Contac t Referred To Contact Diagnoses Personal history of malignant neoplasm of breast Mass of left breast, unspecified quadrant Procedures MAMMO DIAGNOSTIC WITH MYNOR BILATERAL Elvi Talley, OFFICE RENTAL CLERK-ORTHOTIC PRACTITIONER [address] [place] [address] Referral ID Status Reason Start Date Expiration Date V isits Requested Visits Authorized [id number] New Request 08/01/2022 08/26/2023 1 1 Additional Source Comments INFORMATION SOURCE (unrecogn ized section and content) DATE CREATED AUTHOR AUTHOR'S ORGANIZ ATION 06/10/2019 [facility] DATE CREATED AUTHOR AUTHOR'S ORGANIZ ATION 10/17/2019 [facility] DATE CREATED AUTHOR AUTHOR'S ORGANIZ ATION 05/05/2021 [facility] DATE CREATED AUTHOR AUTHOR'S ORGANIZ ATION 11/01/2022 [employer] DATE CREATED AUTHOR AUTHOR'S ORGANIZ ATION 05/10/2023 [facility] DATE CREATED AUTHOR AUTHOR'S ORGANIZ ATION 11/10/2023 [facility] DATE CREATED AUTHOR AUTHOR'S ORGANIZ ATION 11/10/2023 [facility] DATE CREATED AUTHOR AUTHOR'S ORGANIZ ATION 11/14/2023 [facility] Amb[facility] Reason for Visit (unrecogniz ed section and content) Reason Comments Breast Problem Specialty Diagnoses / Procedures Referred By Contac t Referred To Contact Diagnoses Personal history of malignant neoplasm of breast Mass of left breast, unspecified quadrant Procedures US BREAST LIMITED UNILATERAL LEFT Mayank Elvi, OFFICE RENTAL CLERK-ORTHOTIC PRACTITIONER [address] [place] [address] Referral ID Status Reason Start Date Expiration Date V isits Requested Visits Authorized [id number] New Request 08/01/2022 08/26/2023 1 1 Specialty Diagnoses / Procedures Referred By Contac t Referred To Contact Diagnoses Personal history of malignant neoplasm of breast Mass of left breast, unspecified quadrant Procedures MAMMO DIAGNOSTIC WITH MYNOR BILATERAL Elvi Talley, OFFICE RENTAL CLERK-ORTHOTIC PRACTITIONER [address] [place] [address] Referral ID Status Reason Start Date Expiration Date V isits Requested Visits Authorized [id number] New Request 08/01/2022 08/26/2023 1 1 Reason Comments Follow-up 6 mo Specialty Diagnoses / Procedures Referred By Contac t Referred To Contact Diagnoses Visit for screening mammogram Procedures MAMMO SCREENING WITH MYNOR BILATERAL MAMMO SCREENING BILATERAL Mammography-[facility], Self-Requested [address] [place] [address] Referral ID Status Reason Start Date Expiration Date V isits Requested Visits Authorized [id number] New Request 04/15/2023 05/09/2024 1 1 Reason Comments Follow-up 6 mo rev labs Specialty Diagnoses / Procedures Referred By Contac t Referred To Contact Primary Care Diagnoses Eczema, unspecified type Malignant neoplasm of upper-outer quadrant of left breast in female, estrogen receptor positive (CMS/HCC) Primary hypertension Mixed hyperlipidemia Procedures Follow Up In Primary Care Lawanda Schroeder MD [address] [place] [address] Referral ID Status Reason Start Date Expiration Date Visits Re quested Visits Authorized [id number] Closed 05/05/2023 11/01/2023 1 1 Reason Comments Arm swelling Care Teams (unrecognized sec tion and content) Integration Engineer Relationship Specialty Start Date End Date Lawanda Schroeder MD PCP - General Family Medicine 09/13/14 Kellie Poon, OFFICE RENTAL CLERK-ORTHOTIC PRACTITIONER Certified Nurse Practitioner 09/13/14 Jacqueline Suazo, RN Registered Nurse 10/04/14 Nedra Shaffer, OFFICE RENTAL CLERK-ORTHOTIC PRACTITIONER [address] [place] [phone] Nurse Practitioner Medical Oncology 12/29/16 Chadwick Choudhary MD, PhD [address] [place] [address] Oncologist Medical Oncology 01/09/17 Roxie Villarreal, RN Registered Nurse Medical Oncology 01/26/18 Paramjit Quigley, RN Registered Nurse Medical Oncology 02/04/19 Amrita Guerra, RN Registered Nurse Medical Oncology 02/04/19 Integration Engineer Relationship Specialty Start Date End Date Lawanda Schroeder MD PCP - General Family Medicine 09/13/14 Kellie Poon, OFFICE RENTAL CLERK-ORTHOTIC PRACTITIONER Certified Nurse Practitioner 09/13/14 Jacqueline Suazo, RN Registered Nurse 10/04/14 Nedra Shaffer, OFFICE RENTAL CLERK-ORTHOTIC PRACTITIONER [address] [place] [address] Nurse Practitioner Medical Oncology 12/29/16 Chadwick Choudhary MD, PhD [address], [address] [place] [phone] Oncologist Medical Oncology 01/09/17 Roxie Villarreal, RN Registered Nurse Medical Oncology 01/26/18 Paramjit Quigley, RN Registered Nurse Medical Oncology 02/04/19 Amrita Guerra, ETIENNE Registered Nurse Medical Oncology 02/04/19 Integration Engineer Relationship Specialty Start Date End Date Lawanda Schroeder MD PCP - General Family Medicine 09/13/14 Kellie Poon, OFFICE RENTAL CLERK-ORTHOTIC PRACTITIONER Certified Nurse Practitioner 09/13/14 Jacqueline Suazo, RN Registered Nurse 10/04/14 Nedra Shaffer, OFFICE RENTAL CLERK-ORTHOTIC PRACTITIONER [address] [place] [phone] Nurse Practitioner Medical Oncology 12/29/16 Chadwick Choudhary MD, PhD [address], [address] [place] [address] Oncologist Medical Oncology 01/09/17 Roxie Villarreal, RN Registered Nurse Medical Oncology 01/26/18 Paramjit Quigley, RN Registered Nurse Medical Oncology 02/04/19 Amrita Guerra, ETIENNE Registered Nurse Medical Oncology 02/04/19 Integration Engineer Relationship Specialty Start Date End Date Lawanda Schroeder MD [address] [place] [address] PCP - General 08/02/19 Lawanda Schroeder MD [address] [place] [address] PCP - MMO ACO PCP 11/30/21 Integration Engineer Relationship Specialty Start Date End Date Lawanda Schroeder MD PCP - General Family Medicine 09/13/14 Kellie Poon, OFFICE RENTAL CLERK-ORTHOTIC PRACTITIONER Certified Nurse Practitioner 09/13/14 Jacqueline Suazo, RN Registered Nurse 10/04/14 Nedra Shaffer, OFFICE RENTAL CLERK-ORTHOTIC PRACTITIONER [address] [place] [phone] Nurse Practitioner Medical Oncology 12/29/16 Chadwick Choudhary MD, PhD [address], [address] [place] [address] Oncologist Medical Oncology 01/09/17 Roxie Villarreal, RN Registered Nurse Medical Oncology 01/26/18 Paramjit Quigley, RN Registered Nurse Medical Oncology 02/04/19 Amrita Guerra, RN Registered Nurse Medical Oncology 02/04/19 Integration Engineer Relationship Specialty Start Date End Date Lawanda Schroeder MD PCP - General Family Medicine 09/13/14 Kellie Poon, OFFICE RENTAL CLERK-ORTHOTIC PRACTITIONER Certified Nurse Practitioner 09/13/14 Jacqueline Suazo, RN Registered Nurse 10/04/14 Nedra Shaffer, OFFICE RENTAL CLERK-ORTHOTIC PRACTITIONER [address] [place] [address] Nurse Practitioner Medical Oncology 12/29/16 Chadwick Choudhary MD, PhD [address], [address] [place] [address] Oncologist Medical Oncology 01/09/17 Roxie Villarreal, RN Registered Nurse Medical Oncology 01/26/18 Paramjit Quigley, RN Registered Nurse Medical Oncology 02/04/19 Amrita Guerra, RN Registered Nurse Medical Oncology 02/04/19 Integration Engineer Relationship Specialty Start Date End Date Lawanda Schroeder MD [address] [place] [id number] PCP - General 08/02/19 Lawanda Schroeder MD [address] [place] [address] PCP - MMO ACO PCP 11/30/21 FOR RECORDS PERTAINING TO PATIENTS WHO ARE OR HAVE BEEN ENROLLED IN A CHEMICAL DEPENDENCY/SUBSTANCEABUSE PROGRAM, SOME INFORMATION MAY BE OMITTED. This clinical summary was aggregated from multiple sources. Caution should be exercised in using it in the provision of clinical care. This summary normalizes information from multiple sources, and as a consequence, information in this document may materially change the coding, format and clinical context of patient data. In addition, data may be omitted in some cases. CLINICAL DECISIONS SHOULD BE BASED ON THE PRIMARY CLINICAL RECORDS. [employer] provides no warranty or guarantee of the accuracy or completeness of information in this document.
[2023-12-22] MEDS: Lactated Ringers 1,000 ML 15 ML IV (08:41)
[2023-12-22 08:43] VITALS: BP 124/84; PULSE 74; RESP 18; TEMP 36.4; O2SAT 100; BMI 32.5
--- NOTE | 2023-12-22 08:57 | H&P.OPEN ---
HPI - General HPI Narrative ANDRE PAGAN, is a 48 F who presents for screening colonoscopy. The patient denies any abdominal pain or blood in the stool. The patient has never had a colonoscopy in the past. She has no family history of colon cancer. [facility] Medical History (Updated 12/17/23 @ 10:43 by Grabiel Mcneal) Breast cancer Easy bruising Fatty liver High cholesterol History of stress test HTN (hypertension) Non-smoker Wears glasses Home Medications aspirin 81 mg tablet,delayed release 81 mg PO DAILY 10/04/20 [History Last Taken 12/20/23] lisinopril 10 mg-hydrochlorothiazide 12.5 mg tablet 1 tab PO DAILY 10/04/20 [History Last Taken 12/22/23] loratadine 10 mg tablet (Claritin) 10 mg PO DAILY 10/04/20 [History Last Taken 12/21/23] multivitamin 1 tab PO DAILY 10/04/20 [History Last Taken 12/20/23] biotin 1,000 mcg chewable tablet 1,000 mcg PO DAILY 10/29/22 [History Last Taken 12/21/23] coconut oil 1,000 mg capsule 1,000 mg PO DAILY 10/29/22 [History Last Taken 12/21/23] potassium chloride 20 mEq tablet,extended release 20 meq PO DAILY 11/04/23 [History Last Taken 12/20/23] rosuvastatin 20 mg tablet 20 mg PO DAILY 11/04/23 [History Last Taken 12/22/23] Allergy/AdvReac Type Severity Reaction Status Date / Time latex Allergy Mild Rash Verified 12/17/23 10:32 meperidine [From Demerol] Allergy Mild Nausea/Vom/ Verified 12/17/23 10:32 Diarrhea Surgical History H/O bilateral salpingo-oophorectomy History of appendectomy History of cholecystectomy History of lumpectomy Social History household members: spouse number of children: 0 current occupational status: employed current occupation: investment adviser history of recent travel: Yes out of state: Yes sexually active: Yes Smoking Status: Never smoker alcohol intake: never substance use type: does not use what type of physical activity do you participate in: none seatbelt use: always do you feel safe at home: Yes additional social history: - Adalid Rodríguez step-children Past Medical/Surgical History Planned Operation Planned Operative Procedure/s: COLONOSCOPY Previous Hospitalizations/Surgeries HX Hospitalizations: No Any Problems With Anesthesia: No You/Your Family Experience Fever (Hyperthermia) With Anes: No Cholinesterase deficiency: No Cardiovascular Hx Hypertension: Yes Respiratory Hx Sleep Apnea: No Hx Respiratory Tract Infection/Cold (presently): No Do You Snore Loudly (louder than talking or can be heard): Yes Do You Often Feel Tired/ Fatigued/ Sleepy Dring Daytime?: No Has Anyone Observed You Stop Breathing During Sleep?: No Result (for STOP score): Positive Smoking Status: Never smoker Neurological Does patient have nerve stimulator: No Reproduction : No Miscellaneous Recent Exposure to Contagious Disease: No Allergies latex Allergy (Mild, Verified 12/17/23 10:32) Rash meperidine [From Demerol] Allergy (Mild, Verified 12/17/23 10:32) Nausea/Vom/Diarrhea Discharge Is Pt Admitted From a Retirement, or a Custodial: No After D/C, Where Do you Plan to Go: Return Home Vital Signs Vital Signs Vital Signs: 12/22/23 08:43 12/22/23 08:43 Temperature 97.5 F L Temperature Source Temporal Pulse Rate 74 Respiratory Rate 18 Respiratory Pattern Normal Blood Pressure 124/84 H Blood Pressure Mean 97 Blood Pressure Source Monitor Blood Pressure Position Semi-Fowlers Blood Pressure Location Right Arm Pulse Ox 100 Oxygen Delivery Method Room Air Weight Weight: 178 lb Body Mass Index (BMI) 32.5 Physical Exam Const alert and oriented x3 HEENT normocephalic Eyes PERRL Resp normal respiratory effort and normal air movement Cardio regular rate and regular rhythm GI soft to palpation, non-tender and non-distended Extremity normal to inspection Assessment & Plan Assessment/Plan (1) Encounter for screening for malignant neoplasm of colon: PLAN: I explained endoscopy in detail to the patient. I explained the risks including but not limited to stroke or heart attack with anesthesia, perforation of the GI tract, bleeding, infection. I explained that any of these could necessitate further emergency surgery. The patient understands and all questions were answered sufficiently. The patient wishes to proceed with procedure. Asher Bragg MD Pager: [facility] [address] [place] [address], [address] [place] [address] Office: Surgery Risks - Colonoscopy Risks Include but are not Limited To: Risks include but are not limited to: Bleeding, perforation requiring further surgery, inability to complete colonoscopy requiring barium enema.
--- NOTE | 2023-12-22 09:15 | COLBX_PTH ---
PATHOLOGY RESULTS PATIENT: ANDRE PAGAN LOC: EN U#:[id number] AGE/SX: 48/F ROOM: RE12/22/[address]: Dr. Asher Bragg MD : 1975 BED: DIS: 12/22/2023 SPEC #: [id number] RECD: 12/22/23 12:09 STATUS: GEORGE TONYKartik #: [id number] CHUCHO: 12/22/23 09:[address]: Asher Bragg DEPT: SURGICAL PATHOLOGY RECD BY: Betzy Gonzales ENTERED: 12/22/23 12:09 SP TYPE: COLON BX OTHR DR: Dr. Clif Schroeder MD Tissues: Rectum, NOS Procedures: Surgery Specimen Level IV HEADER OPERATION: Colonoscopy - open access PRE-OP DIAGNOSIS: Screening TISSUE SUBMITTED: Rectal polyp MICROSCOPIC DIAGNOSIS Rectal polyp, biopsy: Hyperplastic polyp. SJ:kirsty 12/23/2023 MICROSCOPIC DESCRIPTION Slides are reviewed. GROSS DESCRIPTION Received in fixative is one container labeled with the patient's name and designated rectal polyp. The specimen consists of one irregular fragment of light price soft tissue that measures 0.3 x 0.3 x 0.1 cm. The specimen is totally submitted in one cassette. / SJ:kirsty 12/22/2023 TC:1 CPT: 62599
[2023-12-22 09:23] VITALS: BP 102/52; BP 124/84; PULSE 74; RESP 18; TEMP 36.3; O2SAT 97
[2023-12-22 09:25] VITALS: BP 124/84; BP 98/49; PULSE 79; RESP 16; O2SAT 95
--- NOTE | 2023-12-22 09:28 | OP.COLON_ITS ---
Patient Name: Terri Robles Procedure Date: 12/22/2023 8:53 AM Date of : 1975 Age: 48 Procedure: Colonoscopy Indications: Screening for colorectal malignant neoplasm Providers: Asher Bragg MD Referring MD: Clif Schroeder Medicines: Propofol per Anesthesia Patient Profile: This is a 48 year old female. Refer to note in patient chart for documentation of history and physical. Last Colonoscopy: none. The patient's first colonoscopy is today. Complications: No immediate complications. Estimated blood loss: Minimal. Procedure: Pre-Anesthesia Assessment: - Prior to the procedure, a History and Physical was performed, and patient medications and allergies were reviewed. The patient's tolerance of previous anesthesia was also reviewed. The risks and benefits of the procedure and the sedation options and risks were discussed with the patient. All questions were answered, and informed consent was obtained. Prior Anticoagulants: The patient has taken no anticoagulant or antiplatelet agents. After reviewing the risks and benefits, the patient was deemed in satisfactory condition to undergo the procedure. After I obtained informed consent, the scope was passed under direct vision. Throughout the procedure, the patient's blood pressure, pulse, and oxygen saturations were monitored continuously. The colonoscope was introduced through the anus and advanced to the cecum, identified by appendiceal orifice and ileocecal valve. The colonoscopy was performed without difficulty. The patient tolerated the procedure well. The quality of the bowel preparation was good. The ileocecal valve, appendiceal orifice, and rectum were photographed. Scope In: 9:06:44 AM Scope Withdrawal Time 0 hours 4 minutes 47 seconds Scope Out: 9:15:13 AM Total Procedure Duration Time 0 hours 8 minutes 29 seconds Findings: A small polyp was found in the distal rectum. The polyp was removed with a hot snare. Resection and retrieval were complete. The exam was otherwise without abnormality on direct and retroflexion views. Impression: - One small polyp in the distal rectum, removed with a hot snare. Resected and retrieved. - The examination was otherwise normal on direct and retroflexion views. Recommendation: - Discharge patient to home. - Resume previous diet. - Continue present medications. - Await pathology results. - Repeat colonoscopy for surveillance based on pathology results. Procedure Code(s): --- Professional --- 50107, 33, Colonoscopy, flexible; with removal of tumor(s), polyp(s), or other lesion(s) by snare technique Diagnosis Code(s): --- Professional --- Z12.11, Encounter for screening for malignant neoplasm of colon D12.8, Benign neoplasm of rectum CPT copyright 2021 [employer]. All rights reserved. The codes documented in this report are preliminary and upon medical field representative review may be revised to meet current compliance requirements. Asher Bragg MD 12/22/2023 9:28:23 AM This report has been signed electronically. Number of Addenda: 0 Note Initiated On: 12/22/2023 8:53 AM
--- NOTE | 2023-12-22 09:29 | OP.CCLET_ITS ---
12/22/2023 Clif Schroeder Re : Colonoscopy procedure for Terri Schroeder This procedure was performed on Friday, December 22, 2023. My impressions and recommendations are as follows: Impressions : - One small polyp in the distal rectum, removed with a hot snare. Resected and retrieved. - The examination was otherwise normal on direct and retroflexion views. Recommendations : - Discharge patient to home. - Resume previous diet. - Continue present medications. - Await pathology results. - Repeat colonoscopy for surveillance based on pathology results. My findings are described in the full procedure note, which is enclosed. If I can be of further assistance, please feel free to contact me at Doctor phone number(s): , Work: . Sincerely, Asher Bragg MD 12/22/2023 9:28:23 AM This report has been signed electronically.
[2023-12-22 09:30] VITALS: BP 124/84; BP 97/49; PULSE 77; RESP 18; O2SAT 96
[2023-12-22 09:37] VITALS: BP 113/57; BP 124/84; PULSE 69; RESP 18; TEMP 36.6; O2SAT 96
[2023-12-22 09:55] VITALS: BP 124/84
== END 2023-12-22 10:02 | disposition home or self-care (01) ==
LOC: EN 08:14 → AC 08:15
PROVIDERS: PCP Family Medicine; Referring Provider Family Medicine; Visit Provider Surgery
PROC: 0DJD8ZZ Inspection of Lower Intestinal Tract, Via Natural or Artificial Opening Endoscopic (ICD-10-PCS; CPT 45378; principal; 2023-12-22 09:10)
DX: Z12.11 Encounter for screening for malignant neoplasm of colon (principal); K62.1 Rectal polyp; Z90.49 Acquired absence of other specified parts of digestive tract; Z79.82 Long term (current) use of aspirin; I10 Essential (primary) hypertension; E78.00 Pure hypercholesterolemia, unspecified; Z85.3 Personal history of malignant neoplasm of breast; Z79.899 Other long term (current) drug therapy; Z90.722 Acquired absence of ovaries, bilateral
CPT/HCPCS: 45385; 88305; J7120; J2405

== ENCOUNTER → 2025-11-07 | Outpatient (CLI) | payer SELFPAY ==
[2025-11-09 13:08] LABS: HPV APTIMA, High Risk Negative (Negative)
== END | disposition home or self-care (01) ==
LOC: LABSPEC 11:16
PROVIDERS: PCP Family Medicine; Visit Provider Nurse Practitioner Women's Health
DX: Z12.4 Encounter for screening for malignant neoplasm of cervix (principal)
CPT/HCPCS: 87624; 88175; G0145